=== PATIENT | male | born 1985 | race Caucasian/White ===

== ENCOUNTER 2017-05-21 08:27 | Emergency (ER) | payer OTHER ==
[2017-05-21] MEDS ORDERED: METOCLOPRAMIDE HCL INJECTION 10 MG/2 ML VIAL IVPUSH ONE (08:36)
[2017-05-21] MEDS ORDERED: SODIUM CHLORIDE 1,000 ML IV ONE ×2 (08:36→13:05)
[2017-05-21] MEDS ORDERED: PANTOPRAZOLE SODIUM 40 MG in SODIUM CHLORIDE 100 ML IVPB ONE (08:40)
[2017-05-21] MEDS ORDERED: ACETAMINOPHEN 1000 MG/100 ML VIAL (NON FORMULARY) IVPB ONE ×2 (08:41→13:11)
[2017-05-21] MEDS ORDERED: PANTOPRAZOLE SODIUM 40 MG VIAL ONE (08:42)
[2017-05-21] MEDS ORDERED: ACETAMINOPHEN INJECTION 100 ML IVPB ONE ×2 (08:42→13:11)
--- NOTE | 2017-05-21 08:42 | PDOC ---
History of Present Illness - General Chief Complaint: Nausea/Vomiting Stated Complaint: fever,nausea, vomiting Time Seen by Provider: 05/21/17 08:35 History Source: Patient Exam Limitations: No Limitations - History of Present Illness Travel History: No Initial Comments: 05/21/17 08:36 31y M hx of renal disaese (alports disease) on transplant list, presents with several days of not feeling well - pt notes that it started off as abdominal pain a efw days ago, but he has been feelign very nausus yesterday and started vomiting around 3am. Pt endorses fever to 102. Denies any diarrhea, cough, congestion. No abdominal pain currently. No dysuria, frquency, foul smelling urine. No blood in vomit or stool. pt kristel any back pain. his last cr was 3.2 in dec, up from the low-mid twos previously no recent travel or known sickc ontacts Past History - Past Medical History Allergies/Adverse Reactions: Allergies Allergy/AdvReac Type Severity Reaction Status Date / Time Sulfa (Sulfonamide Allergy Verified 05/21/17 08:29 Antibiotics) sulfamethoxazole Allergy Verified 05/21/17 08:29 [From Bactrim] trimethoprim [From Bactrim] Allergy Verified 05/21/17 08:29 Home Medications: Ambulatory Orders Buprenorphine HCl/Naloxone HCl [Suboxone 12 mg-3 mg Sl Film] 1 each SL DAILY Diazepam [Valium] 5 mg PO PRN PRN 05/21/17 Nitrofurantoin Macrocrystal [Nitrofurantoin] 100 mg PO BID #10 capsule 05/21/17 Ondansetron [Zofran Odt -] 4 mg SL BID PRN #14 od.tablet 05/21/17 Sertraline HCl 25 mg PO DAILY 05/21/17 Sodium,Potassium Phosphates [Phos-Nak Packet] 1 each PO BID #8 powd.pack Disorders: Yes (KIDNEY PROBLEMS) - Surgical History Appendectomy: Yes - Immunization History Td Vaccination: Yes Immunization Up to Date: Yes - Suicide/Smoking/Psychosocial Hx Smoking Status: Yes Smoking History: Current every day smoker Number of Cigarettes Smoked Daily: 30 Review of Systems - Review of Systems Able to Perform ROS?: Yes Comments:: 05/21/17 08:38 Constitutional - no reported Fever, Chills, HEENT: no reported vision changes, sore throat Respiratory: no reported cough, sob, hemoptysis Cardiac: no reported chest pain, palpitations, light headedness, leg swelling Abd/GI: +nausea, vomiting, abd pain, no reported blood per rectum, melena, diarrhea : no reported dysuria, frequency, discharge Musculskelatal - no reported back pain, joint swelling skin - no reported bruising, erythema, rash neurological: no reported headache, numbness, focal weakness, tingling, ataxia, hematologic: no reported anemia, easy bruising, easy bleeding *Physical Exam - Physical Exam Comments: 05/21/17 08:39 GENERAL: The patient is awake, alert, and fully oriented, Nontoxic - in no acute distress. HEAD: Normocephalic, atraumatic. EYES: extraocular movements intact, sclera anicteric, conjunctiva clear. ENT: Normal voice, dry mucous membranes. NECK: Normal range of motion, supple LUNGS: Breath sounds equal, clear to auscultation bilaterally. No wheezes, no rhonchi, no rales. HEART: tachycardic, normal S1 and S2 without murmur, rub or gallop. ABDOMEN: Soft, mildly diffusely tender, normoactive bowel sounds. No guarding, no rebound. No CVA tenderness EXTREMITIES: Normal range of motion, no edema. No clubbing or cyanosis. No cords, erythema, or tenderness. NEUROLOGICAL: No facial assymetry, Normal speech, PSYCH: Normal mood, normal affect. SKIN: Warm, Dry, normal turgor, 05/21/17 14:32 reassesed abdomen: no focal tenderness, no cva tenderness general: well appearing, no distress Heart Score/ECG Review - ECG Impressions Comment:: 05/21/17 08:45 Twelve-lead EKG was performed and reviewed by me. There is normal sinus rhythm with a rate of 128 Left anterior fascicular block ED Treatment Course - LABORATORY CBC & Chemistry Diagram: 05/21/17 08:30 05/21/17 08:30 Medical Decision Making - Medical Decision Making 05/21/17 08:42 31y M hx of ckd (medulary/alports) presents with n/v, abd pain for several days mild tenderness in abd (pt notes it makes him very nauseus when i press on his abdomen) noted efbrile and tachycadic here ddx includes gastroenteritis, uremia/renal failure, appendicits, gastritis will ck labs will reasesess will give fluids, reglan, protonix tylenol 05/21/17 09:46 pts labs reviewed noted for hypophoasphatemia cr seems just slightly above baseline will repeat vitals will discuss w dr. becerra (his renal doc at [facility]) - [phone] regarding phosphate repletion and disposition 05/21/17 11:[address] Becerra - recommends PO repletion and if well appearing/tlerating oral intake may be dc with outpatient fu - would recommend Phosphorus BID lactic slightly elevated recommended admission but pt prefers to be treated at home. will repeat LA and phos after 2nd liter and reassess the patient. 05/21/17 14:18 pts labs impoved HR also improved vitals significantly improved pt tolerating oral intake here. will give rx for uti, cultures sent will give zofran and phos for outpatient management and fu with nephrology next week. I discussed the physical exam findings, ancillary test results and final diagnoses with the patient. I answered all of the patient's questions. The patient was satisfied with the care received and felt comfortable with the discharge plan and treatment plan. The patient will call their primary care physician within 24 hours to arrange follow-up and will return to the Emergency Department with any new, persistent or worsening symptoms. 05/21/17 15:19 repeat HR improved to 94 *DC/Admit/Observation/Transfer Diagnosis at time of Disposition: Dehydration, Hypophosphatemia UTI (urinary tract infection) Qualifiers: Urinary tract infection type: acute cystitis Hematuria presence: with hematuria Qualified Code(s): N30.01 - Acute cystitis with hematuria CKD (chronic kidney disease) Qualifiers: Chronic kidney disease stage: unspecified stage Qualified Code(s): N18.9 - Chronic kidney disease, unspecified - Discharge Dispostion Disposition: HOME Condition at time of disposition: Improved Admit: No - Prescriptions Prescriptions: Nitrofurantoin Macrocrystal [Nitrofurantoin] 100 mg PO BID #10 capsule Ondansetron [Zofran Odt -] 4 mg SL BID PRN #14 od.tablet PRN Reason: Nausea Sodium,Potassium Phosphates [Phos-Nak Packet] 1 each PO BID #8 powd.pack - Referrals Referrals: Nic Becerra MD [Non Staff, Medical] - - Patient Instructions Printed Discharge Instructions: DI for Nausea -- Adult Additional Instructions: Return to the emergency department immediately with ANY new, persistent or worsening symptoms including any abdominal pain, persistent fevers, inability to tolerate oral intake, back pain or other concerns. Take the medications as prescribed You MUST call and follow up with your doctor on Monday or Monday for further evaluation of your symptoms. Results were discussed with you. Please make sure your doctor reviews the results of your emergency evaluation. Have your phosphate level checked by Dr. Becerra next week. Print Language: AZERI - Post Discharge Activity
[2017-05-21 08:54] LABS: HEMATOCRIT 53.2 % (35.4-49); HEMOGLOBIN 18.1 GM/dl (11.7-16.9); LYMPH % 2.6 % (8-40); MCH 29.8 pg (25.7-33.7); MCHC 34.1 g/dl (32.0-35.9); MEAN CELL VOLUME 87.4 fl (80-96); MEAN PLT VOLUME 8.7 fl (7.5-11.1); MONO % 11.4 % (3.8-10.2); PLATELET COUNT 130 K/MM3 (134-434); RBC 6.09 M/mm3 (4.00-5.60); RDW 12.8 % (11.9-15.9)
[2017-05-21 09:01] VITALS: BMI 38.7
[2017-05-21 09:16] LABS: ALBUMIN 4.7 g/dl (3.5-5.0); ALK PHOS 100 U/L (32-92); ANION GAP 13 (8-16); BILIRUBIN,TOTAL 0.9 mg/dl (0.2-1.0); BLOOD UREA NITROGEN 31 mg/dl (7-18); CHLORIDE 101 mmol/L (98-107); CO2 23 mmol/L (22-28); CREATININE 3.4 mg/dl (0.6-1.3); GLUCOSE,RANDOM 112 mg/dl (74-106); MAGNESIUM 1.8 mg/dL (1.8-2.4); POTASSIUM 3.6 mmol/L (3.5-5.1); SGOT/AST 33 U/L (10-42); SGPT/ALT 51 U/L (10-40); SODIUM 137 mmol/L (136-145)
[2017-05-21 09:28] LABS: PHOSPHOROUS 0.6 mg/dl (2.5-4.6)
[2017-05-21] MEDS ORDERED: NAPH,MB-DB/K PH,MBDB POWDER PACKET PO ONE (10:11)
[2017-05-21 10:22] LABS: URINE APPEARANCE Clear; URINE BILIRUBIN Negative (NEGATIVE); URINE GLUCOSE (UA) Negative (NEGATIVE); URINE KETONE Negative (NEGATIVE); URINE NITRITE Negative (NEGATIVE); URINE UROBILINOGEN 0.2 (0.2-1.0)
[2017-05-21 10:25] LABS: URINE BLOOD 2+ (NEGATIVE); URINE COLOR YELLOW; URINE PROTEIN 3+ (NEGATIVE)
[2017-05-21 10:32] LABS: EPI CELLS FEW /HPF
[2017-05-21 10:33] LABS: AMORP PHOS MODERATE /hpf (NONE SEEN); URINE BACTERIA MODERATE /hpf (NEGATIVE)
[2017-05-21] MEDS ORDERED: ACETAMINOPHEN 325 MG TABLET (FP) PO ONE (13:11)
[2017-05-21 13:17] VITALS: BP 95/49
[2017-05-21] MEDS ORDERED: CEFTRIAXONE 1 GM in DEXTROSE 5%-WATER - 50 ML IVPB ONE (13:32)
[2017-05-21] MEDS ORDERED: cefTRIAXone SODIUM 1 GM VIAL ONE (13:35)
[2017-05-21 13:58] LABS: URINE APPEARANCE Clear; URINE BILIRUBIN Negative (NEGATIVE); URINE GLUCOSE (UA) Negative (NEGATIVE); URINE KETONE Negative (NEGATIVE); URINE NITRITE Negative (NEGATIVE); URINE UROBILINOGEN 0.2 (0.2-1.0)
[2017-05-21 14:00] LABS: URINE BLOOD 2+ (NEGATIVE); URINE COLOR YELLOW; URINE PROTEIN 2+ (NEGATIVE)
[2017-05-21 14:08] LABS: URINE BACTERIA FEW /hpf (NEGATIVE); URINE WBC 0-2 (0-2)
[2017-05-21 14:09] LABS: AMORP URATES FEW /hpf (NONE SEEN)
[2017-05-21 14:27] VITALS: PULSE 104; TEMP 100.6
--- NOTE | 2017-05-22 15:47 | EKG ---
Test Reason : Blood Pressure : / mmHG Vent. Rate : 128 BPM Atrial Rate : 128 BPM P-R Int : 138 ms QRS Dur : 090 ms QT Int : 316 ms P-R-T Axes : 052 -70 035 degrees QTc Int : 461 ms SINUS TACHYCARDIA POSSIBLE LEFT VENTRICULAR HYPERTROPHY (per [place] criteria) LEFT AXIS DEVIATION ABNORMAL ECG NO PREVIOUS ECGS AVAILABLE Confirmed by ADRIANA MOCK MD ([id number]) on 05/22/2017 3:47:14 PM Referred By: ASHLEY Confirmed By:ADRIANA MOCK MD
== END 2017-05-21 15:21 | disposition home or self-care (01) ==
LOC: FER 08:27
PROC: 3E03329 Introduction of Other Anti-infective into Peripheral Vein, Percutaneous Approach (ICD-10-PCS; principal; 2017-05-21)
PROC: 3E0337Z Introduction of Electrolytic and Water Balance Substance into Peripheral Vein, Percutaneous Approach (ICD-10-PCS; 2017-05-21)
PROC: 3E033GC Introduction of Other Therapeutic Substance into Peripheral Vein, Percutaneous Approach (ICD-10-PCS; 2017-05-21)
PROC: 3E033NZ Introduction of Analgesics, Hypnotics, Sedatives into Peripheral Vein, Percutaneous Approach (ICD-10-PCS; 2017-05-21)
DX: N30.01 Acute cystitis with hematuria (principal); N18.9 Chronic kidney disease, unspecified
CPT/HCPCS: 36415; 80053; 81003; 81015; 83605; 83735; 84100; 85025; 87040; 87086; 87804; 93005; 99284-25